=== PATIENT | female | born 1970 | race Caucasian/White ===

== ENCOUNTER 2020-08-19 17:48 | Emergency (ER) | payer OTHER, SELFPAY ==
[2020-08-19 18:19] VITALS: BP 165/95; PULSE 90; RESP 18; TEMP 36.7; O2SAT 96; BMI 38.5
--- NOTE | 2020-08-19 19:21 | CT_ITS ---
EXAMINATION: CT HEAD WITHOUT CONTRAST CLINICAL INFORMATION: Auditory hallucinations COMPARISON: None. TECHNIQUE: Contiguous axial imaging was performed from the skull base to vertex without intravenous administration of contrast. Coronal and sagittal reformatted images are performed at the CT scanner. [This CT examination was performed using dose optimization techniques as appropriate, variously including the following: *Automated exposure control *Adjustment of mA and/or kV according to patient size (this includes techniques or standardized protocols for targeted exams where dose is matched to indication/reason for exam; i.e. extremities or head) *Use of iterative reconstruction technique] DLP: 704 mGy-cm. FINDINGS: There is no evidence of acute intracranial hemorrhage or territorial infarction. No abnormal mass-effect or midline shift is seen. Wynn to white matter differentiation is well preserved. No extra-axial fluid collections are identified. The ventricles are normal in size. There is no abnormal attenuation within the brain parenchyma. There is no osseous abnormality. The mastoid air cells and visualized portions of the paranasal sinuses are well-aerated. CT/CT head/brain wo con IMPRESSION: No acute intracranial pathology.
--- NOTE | 2020-08-19 19:22 | ECG_ITS ---
Test Reason : CHEST PAIN Blood Pressure : / mmHG Vent. Rate : 086 BPM Atrial Rate : 086 BPM P-R Int : 142 ms QRS Dur : 076 ms QT Int : 412 ms P-R-T Axes : 028 -26 -68 degrees QTc Int : 493 ms Normal sinus rhythm Minimal voltage criteria for LVH, may be normal variant ST & T wave abnormality, consider inferior ischemia ST & T wave abnormality, consider anterolateral ischemia Abnormal ECG No previous ECGs available Referred By: Dahlia Calles Electronically Signed By:LUIGI HERZOG MD
--- NOTE | 2020-08-19 19:24 | ED_ITS ---
HPI - Psych General Chief Complaint: Psychiatric Symptoms Stated Complaint: insect under skin Time Seen by Provider: 08/19/20 18:51 Source: patient Mode of arrival: ambulatory Limitations: no limitations History of Present Illness HPI Narrative: 50-year-old female with a past medical history of depression, anxiety, PTSD, RLS, fibromyalgia, sleep apnea, PE on Xarelto, hypertension, tachycardia here with complaints of visual hallucinations. The patient tells me for the last few days she has been seeing mosquitos up in her ceiling that come down in squiggly lines and try to buy her. She tells me that she has been spraying her house with alcohol and insecticide. She told me she called her landlord several times and had removed the ceiling tiles and vacuuming the area. She tells me today she noticed them again and kept cleaning them. She then went to take a shower and noticed some crawling on the shower lugo. She feels like they were trying to bite her. She was praying with alcohol and a returning white. She was spraying with insecticide and may returning black. She tells me she went running out into the hallway to get help. She then spoke to her [facility] counselor who recommended be seen by crisis. The patient tells me she had her son drive her here. When she was sitting in the waiting room she said she could see bugs crawling up and down the wall. She does not hear voices. She denies suicidal, homicidal ideations. No physical complaints outside of bug bites that she feels on her arms and crawling down her throat and in her mouth. Patient tells me that she does not usually have hallucinations. No recent illness. No fevers, chills, headache, neck pain Denies substance or alcohol use. MD complaint: hallucinations Onset (ago): day(s) Duration: intermittent History of same: No Relieving factors: none Exacerbating factors: none Associated psychiatric symptoms: visual hallucinations Associated symptoms: denies other symptoms Treatments prior to arrival: none Related Data Allergies Allergy/AdvReac Type Severity Reaction Status Date / Time isosorbide [From ISORDIL] Allergy Unknown UNKNOWN Verified 08/19/20 18:26 Review of Systems Review of Systems: Yes all other systems are reviewed and are negative Constitutional: Constitutional: Reports no additional constitutional complaints, Denies body ache(s), Denies chills, Denies fever(s), Denies headache(s) and Denies weakness Eyes: Eyes: Reports no additional eye complaints and Denies change in vision ENT: Reports system reviewed and no additional complaints, except as documented, Denies dizziness, Denies headache(s), Denies nasal congestion, Denies nasal discharge and Denies neck pain Cardiovascular: Cardiovascular: Reports no additional cardiovascular complaints, Denies chest pain, Denies leg edema and Denies dyspnea Respiratory: Respiratory: Reports no additional respiratory complaints, Denies cough and Denies dyspnea Gastrointestinal: Gastrointestinal: Reports no additional gastrointestinal complaints, Denies abdominal pain, Denies diarrhea, Denies nausea and Denies vomiting Genitourinary: Genitourinary: Reports no additional female genitourinary complaints and Denies urinary incontinence Musculoskeletal: Musculoskeletal: Reports no additional musculoskeletal complaints, Denies back pain, Denies arthralgias, Denies joint swelling, Denies neck pain, Denies numbness and Denies tingling Integumentary/Breasts: Skin/Breast: Reports system reviewed and no additional complaints, except as docu and Denies rash Neurologic: Reports system reviewed and no additional complaints, except as documented, Denies Abnormal speech present, Denies dizziness, Denies headache(s), Denies numbness, Denies tingling and Denies weakness Psychiatric: Psychiatric: Denies anxiety, Denies depression, Reports visual hallucinations, Denies hallucinations, Reports tactile hallucinations, Denies h omicidal ideation and Denies suicidal ideation [facility] Past Medical History Attestation statement: The following information was validated with the patient. Source: old records reviewed and nursing notes reviewed Medical History Acute depression Anxiety HTN (hypertension) PTSD (post-traumatic stress disorder) Pulmonary emboli RLS (restless legs syndrome) Sleep apnea Tachycardia Social History Social History Alcohol intake: current Alcohol intake frequency: a few times a week Alcohol type: hard liquor Smoking Status: Never smoker Smoked in Last 30 Days: No Use of substances other than those prescribed or required for medical reasons: No Advance Directives: No Physical Exam Vital Signs: Vital Signs: Last Vital Signs Temp 98.0 F 08/19/20 18: Pulse 90 08/19/20 18:19 Resp 18 08/19/20 18:19 BP 165/95 H 08/19/20 18:19 Pulse Ox 96 08/19/20 18:19 Body Mass Index 38.5 Const: General: cooperative, healthy appearing, comfortable and no acute distress Orientation/consciousness: patient oriented x3 Limitations: no limitations HENMT: Head: Yes normal to inspection Ears: hearing grossly normal bilaterally General nose exam: Normal external nose present Face and sinus: Yes normal facial exam Mouth: Normal oral and palatal mucosa present Throat: Yes posterior oropharynx normal Eyes: General: appearance normal, both eyes and all related structures Pupils: Equal, round and reactive pupils present Neck: Neck: Yes normal visual inspection Chest: Chest palpation & inspection: normal inspection of the chest Resp: Effort & Inspection: normal respiratory effort Auscultation: clear to auscultation bilaterally Cardio: Rate: regular rate Rhythm: regular rhythm Peripheral pulses: Peripheral pulses 2+ throughout GI: Inspection: Yes normal to inspection Palpation (GI): Soft to palpation and nontender Auscultation: normal bowel sounds Back/Spine/Pelvis: Thoracic/Lumbar Spine: thoracic and lumbar spine normal to inspection Skin: General skin exam: no rashes or lesions noted Neuro: Other: Very anxious, during conversation keeps looking around the room, scratching at her arms General: patient oriented x3, no focal motor deficits and normal sensation to monofilament Cranial nerves: Yes Equal, round and reactive pupils present Cognition (Neuro): normal cognition Speech: No Abnormal speech present Gait exam (Neuro): Normal gait present Motor exam (neuro): 5/5 motor strength present throughout Sensory Exam: Normal double simultaneous stimulation for sensation Extrem: General: Yes normal to inspection Course Course Course Narrative: 50-year-old female here with both visual and tactile hallu cinations for the last few days. No history of visual or tactile hallucinations. She does have a history of auditory hallucinations. She tells me sometimes when she is around a lot of people she hears voices over them. She has no complaints of SI, HI. No physical complaints with the exception of some bug bites. Afebrile. No recent illnesses. I did speak to the patient's [facility] counselor. There was concern that maybe she stopped 1 of her medications recently and this may be secondary to that. However, the counselor is not sure the name of the medicine. I attempted to get in contact with both the patient's son and daughter but were unsuccessful. She is neurologically intact. She does tell me that she is seeing mosquitos in the room she is scratching at her arms. Will check labs, UA, MAYNARD, EKG, CT head. If medically cleared BHN evaluation. 2100-EKG shows some T-wave inversions. The patient has no chest pain. No previous EKGs to compare to. Troponon negative. Patient has a low magnesium level. Will order replacement. She has a leukocytosis of 15,000. Unclear source. Add on blood cultures and lactic acid. Urine and chest x-ray are pending. 2100-Sign out to Dr Padilla pending above. MDM - Psych Restraints Face to Face Assessment: Face to Face Assessment: Current Situation: After assessment of the patient, a review of the pertinent medical record and a discussion with nursing staff, I feel the patient requires a restrain intervent ion. Reaction To: [] Medical Condition: [] Behavioral State: [] Continued Need: [] Medical Records Attestation: I reviewed the patient's medical records. Lab Data Attestation: I reviewed the patient's lab results. Result diagrams: 08/19/20 19:55 08/19/20 19:55 Labs: Lab Results 08/19/20 08/19/20 08/19/20 Range/Units 19:55 19:55 19:55 WBC 15.8 H (4.8-10.8) X10*3/uL RBC 4.20 (4.20-5.50) X10*6/uL Hgb 16.4 H (12.0-16.0) g/dl Hct 47.6 H (37-47) % MCV 113.3 H (80-98) fL MCH 39.0 H (27.0-33.0) pg MCHC 34.5 (31.0-35.0) g/dl RDW 13.2 (11.0-16.0) % Plt Count 226 (160-400) X10*3/uL MPV 11.6 (9.4-12.3) fL Immature Gran % (Auto) 0.3 (0.0-0.4) % Neut % (Auto) 79.3 H (45-73) % Lymph % (Auto) 12.5 L (20-40) % [place] % (Auto) 6.8 (2-11) % Eos % (Auto) 0.6 (0-4) % Baso % (Auto) 0.5 (0-2) % Lymph # (Auto) 2.0 (1.2-4.9) X10*3/uL [place] # (Auto) 1.1 (0.1-1.2) X10*3/uL Eos # (Auto) 0.1 (0.0-0.4) X10*3/uL Baso # (Auto) 0.1 (0.0-0.2) X10*3/uL Abs Immat Gran (auto) 0.04 H (0.00-0.03) X10*3/uL Absolute Neuts (auto) 12.5 H (2.0-8.3) X10*3/uL Absolute Nucleated RBC 0.000 (0.0-0.012) X10*3/uL Nucleated RBC % (auto) 0.0 (0.0-0.2) /100WBC Sodium 137 (135-145) mmol/L Potassium 3.6 (3.3-5.1) mmol/l Chloride 97 (96-108) mmol/L Carbon Dioxide 27 (22-29) mmol/L Anion Gap 17 (12-20) BUN 9 (9-16) mg/dL Creatinine 0.87 (0.5-1.4) mg/dL Estim Creat Clear Calc 95.3 Estimated GFR > 60 Random Glucose 112 (60-115) mg/dL Calcium 9.4 (8.4-10.2) mg/dL Magnesium 1.3 L* (1.6-2.6) mg/dL Total Bilirubin 1.6 H (0.0-1.0) mg/dL Direct Bilirubin 0.7 H (0.0-0.5) mg/dL AST 20 (5-31) U/L ALT 29 (0-31) U/L Alkaline Phosphatase 72 (39-117) U/L Troponin I High Sens (<3.5-17.0) ng/L Total Protein 7.6 (6.5-8.0) g/dL Albumin 4.4 (3.5-5.0) g/dL Salicylates < 5.0 L (15-30) mg/dL Acetaminophen < 1 (<30) mcg/mL Ethyl Alcohol < 10 mg/dL 08/19/20 Range/Units 19:55 WBC (4.8-10.8) X10*3/uL RBC (4.20-5.50) X10*6/uL Hgb (12.0-16.0) g/dl Hct (37-47) % MCV (80-98) fL MCH (27.0-33.0) pg MCHC (31.0-35.0) g/dl RDW (11.0-16.0) % Plt Count (160-400) X10*3/uL MPV (9.4-12.3) fL Immature Gran % (Auto) (0.0-0.4) % Neut % (Auto) (45-73) % Lymph % (Auto) (20-40) % [place] % (Auto) (2-11) % Eos % (Auto) (0-4) % Baso % (Auto) (0-2) % Lymph # (Auto) (1.2-4.9) X10*3/uL [place] # (Auto) (0.1-1.2) X10*3/uL Eos # (Auto) (0.0-0.4) X10*3/uL Baso # (Auto) (0.0-0.2) X10*3/uL Abs Immat Gran (auto) (0.00-0.03) X10*3/uL Absolute Neuts (auto) (2.0-8.3) X10*3/uL Absolute Nucleated RBC (0.0-0.012) X10*3/uL Nucleated RBC % (auto) (0.0-0.2) /100WBC Sodium (135-145) mmol/L Potassium (3.3-5.1) mmol/l Chloride (96-108) mmol/L Carbon Dioxide (22-29) mmol/L Anion Gap (12-20) BUN (9-16) mg/dL Creatinine (0.5-1.4) mg/dL Estim Creat Clear Calc Estimated GFR Random Glucose (60-115) mg/dL Calcium (8.4-10.2) mg/dL Magnesium (1.6-2.6) mg/dL Total Bilirubin (0.0-1.0) mg/dL Direct Bilirubin (0.0-0.5) mg/dL AST (5-31) U/L ALT (0-31) U/L Alkaline Phosphatase (39-117) U/L Troponin I High Sens < 3.5 (<3.5-17.0) ng/L Total Protein (6.5-8.0) g/dL Albumin (3.5-5.0) g/dL Salicylates (15-30) mg/dL Acetaminophen (<30) mcg/mL Ethyl Alcohol mg/dL Imaging Data CT scan - head: Attestation: I personally reviewed and interpreted this imaging study as follows: Radiologist's impression: [place] [id number] CT Scan Report Signed Patient: Helen DiopMR#: [id number] : 1970Acct:[id number] Age/Sex: 50 / FADM Date: 08/19/20 Loc: HO.ED Attending Dr: Ordering Physician: DAVID KOEHLER NP Date of Service: 08/19/20 Procedure(s): CT head/brain wo con Accession Number(s): [id number] cc: DAVID KOEHLER NP~ EXAMINATION: CT HEAD WITHOUT CONTRAST CLINICAL INFORMATION: Auditory hallucinations COMPARISON: None. TECHNIQUE: Contiguous axial imaging was performed from the skull base to vertex without intravenous administration of contrast. Coronal and sagittal reformatted images are performed at the CT scanner. [This CT examination was performed using dose optimization techniques as appropriate, variously including the following: *Automated exposure control *Adjustment of mA and/or kV according to patient size (this includes techniques or standardized protocols for targeted exams where dose is matched to indication/reason for exam; i.e. extremities or head) *Use of iterative reconstruction technique] DLP: 704 mGy-cm. FINDINGS: There is no evidence of acute intracranial hemorrhage or territorial infarction. No abnormal mass-effect or midline shift is seen. Wynn to white matter differentiation is well preserved. No extra-axial fluid collections are identified. The ventricles are normal in size. There is no abnormal attenuation within the brain parenchyma. There is no osseous abnormality. The mastoid air cells and visualized portions of the paranasal sinuses are well-aerated. CT/CT head/brain wo con IMPRESSION: No acute intracranial pathology. ECG Data Attestation: I personally reviewed and interpreted this ECG as follows: ECG interpretation date: 08/19/20 ECG interpretation time: 20:06 Interpretation: Normal sinus rhythm, rate 86, normal ME, normal QRS, QTC 493. Inverted T-waves in V3, V4, V5 Discharge Plan Discharge Clinical Impression: Hallucination, visual
[2020-08-19 20:07] LABS: MANUAL DIFF FLAG NO
[2020-08-19 20:09] LABS: Basophils Absolute Auto 0.1 X10*3/uL (0.0-0.2); Basophils Percent Auto 0.5 % (0-2); Eosinophils Absolute Auto 0.1 X10*3/uL (0.0-0.4); Eosinophils Percent Auto 0.6 % (0-4); Hematocrit 47.6 % (37-47); Hemoglobin 16.4 g/dl (12.0-16.0); Imm Gran Abs Auto 0.04 X10*3/uL (0.00-0.03); Imm Gran Pct Auto 0.3 % (0.0-0.4); Lymphocytes Percent Auto 12.5 % (20-40); Mean Corpuscular HGB Conc 34.5 g/dl (31.0-35.0); Mean Platelet Volume 11.6 fL (9.4-12.3); Monocytes Absolute Auto 1.1 X10*3/uL (0.1-1.2); Monocytes Percent Auto 6.8 % (2-11); Neutrophils Absolute Auto 12.5 X10*3/uL (2.0-8.3); Neutrophils Percent Auto 79.3 % (45-73); Platelet Count 226 X10*3/uL (160-400); Red Cell Distribution Width 13.2 % (11.0-16.0); White Blood Count 15.8 X10*3/uL (4.8-10.8)
[2020-08-19 20:29] LABS: Ethanol < 10 mg/dL
[2020-08-19 20:45] LABS: Mean Corpuscular Volume 113.3 fL (80-98)
[2020-08-19 20:47] LABS: Acetaminophen LAB < 1 mcg/mL (<30); Alanine Aminotransferase 29 U/L (0-31); Albumin Level 4.4 g/dL (3.5-5.0); Alkaline Phosphatase 72 U/L (39-117); Anion Gap 17 (12-20); Aspartate Amino Transferase 20 U/L (5-31); Bilirubin Direct 0.7 mg/dL (0.0-0.5); Bilirubin Total 1.6 mg/dL (0.0-1.0); Blood Urea Nitrogen 9 mg/dL (9-16); Calcium 9.4 mg/dL (8.4-10.2); Carbon Dioxide 27 mmol/L (22-29); Chloride 97 mmol/L (96-108); Creatinine Clr Calc Pharmacy 95.3; Estimated Glomerular Filt Rate > 60; Glucose Random 112 mg/dL (60-115); Magnesium 1.3 mg/dL (1.6-2.6); Potassium 3.6 mmol/l (3.3-5.1); Salicylate < 5.0 mg/dL (15-30); Sodium 137 mmol/L (135-145); Total Protein 7.6 g/dL (6.5-8.0)
--- NOTE | 2020-08-19 20:56 | XR_ITS ---
EXAMINATION: XR CHEST CLINICAL INFORMATION: Pneumonia. COMPARISON: None TECHNIQUE: Frontal view of the chest was obtained. 9:04 PM FINDINGS: There are irregular small opacities in the left mid lung. There is a similar parenchymal opacity over the left mid lower lung retrocardiac area. These could be parenchymal, acute infiltrate versus old change including pleural calcification or parenchymal scarring of lung. There is no old films available for comparison. CT of chest would be helpful for further evaluation. Heart size is normal. No pulmonary vascular congestion. No pleural effusion, there is no pneumothorax. XR/XR chest 1V IMPRESSION: There are small opacities in the left midlung and left lung base which may be acute or chronic. CT of chest would be helpful for further evaluation.
[2020-08-19 20:58] LABS: Troponin-I High Sensitivity < 3.5 ng/L (<3.5-17.0)
[2020-08-19] MEDS: 0.9 % Sodium Chloride 1,000 ML 999 ML IV (21:30)
[2020-08-19 21:34] VITALS: BP 153/84; PULSE 73; RESP 20; O2SAT 96
[2020-08-19] MEDS: LORazepam 2 MG/ML VIAL 1 MG IVPUSH (21:38)
[2020-08-19] MEDS: Magnesium Sulfate/D5W 1 GM/100 ML PIGGYBACK IV (21:39)
[2020-08-19 22:10] LABS: Lactic Acid 1.4 mmol/L (0.5-2.0)
--- NOTE | 2020-08-19 23:04 | PC.NURSE ---
PER DR GARZA OK TO DC LINE. AND SEND TO BACK TO POD.
--- NOTE | 2020-08-19 23:33 | PC.NURSE ---
JEFF faxed and called.
--- NOTE | 2020-08-20 01:43 | PC.NURSE ---
PT is in apparent distress. Screaming and swatting at the mosquitos flying around the room and on the bed . Experiencing auditory, visual, and tactile hallucinations. Provider notified.
[2020-08-20] MEDS: LORazepam 1 MG TABLET 2 MG PO (01:50)
[2020-08-20 06:00] VITALS: BP 132/72; PULSE 84; RESP 18; TEMP 36.3; O2SAT 96
--- NOTE | 2020-08-20 07:14 | PC.NURSE ---
Report received from AMMON Castellon. Pt resting, resp unlabored.
[2020-08-20 08:02] VITALS: BP 142/74; PULSE 79; TEMP 36.3; O2SAT 97
[2020-08-20 09:50] LABS: COVID-19 Test Negative (Negative)
--- NOTE | 2020-08-20 11:21 | PC.NURSE ---
Pt awake briefly, affect even, aware of radiology results and need for treatments. No concerns reported at this time.
[2020-08-20] MEDS: Amoxicillin 500 MG CAPSULE 1000 MG PO ×3 (11:27→21:13)
[2020-08-20] MEDS: Azithromycin 500 MG TABLET PO (11:27)
--- NOTE | 2020-08-20 11:53 | PC.NURSE ---
bhn in w/ pt
[2020-08-20 12:00] VITALS: RESP 20
[2020-08-20] MEDS: LORazepam 1 MG TABLET PO ×2 (13:34→13:35)
--- NOTE | 2020-08-20 13:37 | PC.NURSE ---
pt laying in bed w nad, reports feeling anxious, medicated as ordered, psychiatric np mike states that the pt will get an mri
--- NOTE | 2020-08-20 14:56 | CT_ITS ---
EXAMINATION: CT HEAD WITH CONTRAST CLINICAL INFORMATION: Hallucinations. Leukocytosis. Concern for encephalitis. COMPARISON: CT head without contrast from 08/19/2020. TECHNIQUE: Contiguous axial imaging was performed from the skull base to vertex without and following the administration of 85 mL of Omnipaque 350 intravenous contrast. DLP: 725 mGy-cm FINDINGS: There is no evidence of acute intracranial hemorrhage or edematous territorial infarction. Nonspecific few foci of hypoattenuation in the periventricular and deep white matter. Wynn-white matter differentiation is preserved. The ventricles are normal in size and configuration. No evidence for obstructive hydrocephalus. No abnormal mass effect or midline shift. No extra-axial fluid collections. No demonstrated abnormal intracranial enhancement or regions of oligemia. No acute soft tissue or osseous abnormalities. Mild mucosal thickening of the paranasal sinuses. The mastoid air cells and middle ear cavities remain well aerated. CT/CT head/brain w con IMPRESSION: 1. No evidence of acute intracranial hemorrhage or edematous territorial infarction. 2. No abnormal intracranial enhancement. 3. Nonspecific mild white matter changes, most commonly seen with mild underlying microangiopathy.
--- NOTE | 2020-08-20 15:39 | PC.NURSE ---
Pt transferred to main ED for further medical workup. Pt gait steady, affect even. Report given to AMMON Benavides
[2020-08-20] MEDS: iohexoL 350 MG/ML 100 ML INFUS..BTL 85 ML IV (16:07)
[2020-08-20 16:20] VITALS: BP 128/77; PULSE 82; RESP 16; O2SAT 97
--- NOTE | 2020-08-20 16:21 | PC.NURSE ---
Pt moved from POD, alert/oriented x3. Awaiting MRI. Medicated with abx as charted
[2020-08-20 17:23] VITALS: BP 108/72; PULSE 82; RESP 16; O2SAT 95
--- NOTE | 2020-08-20 18:23 | PC.NURSE ---
Spoke to CARE team in order to facilitate outpatient psychiatric appt upon discharge, CARE team will reach out to [facility] (pts office) to see if appt can be made, will call ED back
--- NOTE | 2020-08-20 18:30 | MHC.CARE ---
CARE Team is contacted by ED charge rn, in order to help with setting up a psychiatry appointment. CARE Team reaches out to Yue, therapist from [facility], who reports that pt has a psychiatry appointment on 09/02/2020 via telehealth. This info is passed along to charge rn.
--- NOTE | 2020-08-20 18:48 | PC.NURSE ---
Pt has appt with Psychiatrist 09/02/20, Maria E aware but request appt sooner. This RN spoke to daughter to inquire about arranging sooner appt. Daughter Inna, contact number unk (daughter hung up while on hold) Pt remains alert and oriented at this time. Verbal permission to speak to daughter/family regarding care
--- NOTE | 2020-08-20 19:00 | PC.NURSE ---
Assumed care of pt. Pt resting in stretcher. Pt alert, respirations easy, n/l. skin w/d. Pt awaiting further orders.
--- NOTE | 2020-08-20 21:00 | PC.NURSE ---
pt resting in stretcher and medicated as per emar.
--- NOTE | 2020-08-20 22:08 | PC.NURSE ---
assumed care of pt. pt resting in stretcher. Pt awake and wathcing tv without complaints. VS obtained. Awaiting further orders.
[2020-08-20 23:45] VITALS: BP 119/60; PULSE 16; RESP 117; TEMP 36.6; O2SAT 96
[2020-08-21 00:16] LABS: Glucose Urine UA NEG (NEG); Leukocyte Esterase Urine NEG (NEG); Nitrite Urine NEG (NEG); PH 6.5 (5.0-8.0); Specific Gravity - Urine <= 1.005 (1.005-1.025); Urine Blood NEG (NEG); Urine Ketones 5 MG/DL (NEG); Urine Protein NEG (NEG-TRACE)
[2020-08-21 00:18] LABS: Appearance Urine CLEAR; Color Urine AMBER; UACC Culture Trigger NO
[2020-08-21 01:57] VITALS: BP 113/66; PULSE 71; RESP 16; TEMP 36.4; O2SAT 96
--- NOTE | 2020-08-21 02:27 | MHC.CARE ---
billet straightenerPaige reaches out to CARE Team regarding pt's disposition. Provider, Maria E Iyer, LISA also participates in this discussion. Per Maria E, pt is not being discharged because her outpatient psychiatric appt at [facility] is too far away, September 02, 2020, and pt is in need of more immediate psychiatric care. CARE Team inquires about why [facility] was ruled out given this info. Maria E would like for CARE Team to call [facility] tomorrow and see if a sooner medication appointment can be accommodated. In the event that this cannot be accommodated, plan is agreed upon for N to be called and asked to conduct re-eval, to see if pt needs to be psychiatrically admitted, given that outpatient psychiatry is often difficult to access quickly. Per providerMaria E, psychotic sx may be attributed to benzodiazepine withdrawal. CARE Team will follow up in the morning and will communicate with provider and chargemaster analyst, per Paige's request.
--- NOTE | 2020-08-21 06:47 | PC.NURSE ---
Per Care team the plan is to reach out to [facility] to try and facilitate an earlier appt for pt to manage tapering off of benzos. If no sooner appt is available the plan is for N to do a re-eval and change dispo in which case M5 may become an option.
[2020-08-21 07:18] VITALS: BP 143/87; PULSE 83; RESP 16; TEMP 36.8; O2SAT 97
--- NOTE | 2020-08-21 07:21 | PC.NURSE ---
pt alert and oriented, skin appropriate for ethnicity. pt denies. pt requested to brush her teeth, pt give toothbrush and toothpaste. pt states that she used to take benzo's since 2011 clonazepam and tomazepam but then was taken off them by her pcp. pt reported that she could not sleep for about 5days and her behavior changed, that is why she came to the ed. pt explained that we are trying to figure out how she can get back on the benzo's. pt also reports taking xarelto for chronic pulmonary embolisms.
[2020-08-21] MEDS: Amoxicillin 500 MG CAPSULE 1000 MG PO (09:40)
[2020-08-21] MEDS: Azithromycin 500 MG TABLET 250 MG PO (09:42)
--- NOTE | 2020-08-21 09:54 | PC.NURSE ---
spoke to galilea from care team. galilea is working on getting the pt connected back with a provider, according to galilea when she spoke to [facility] counseling the pt' provider that was prescribing her the benzo's quite and the pt was not set up with a new provider. also we contacted Corazon Bauman to come down for a psy evaluation. plan for Corazon to come down and see the pt this rn also called [facility] to [facility] medication, and updated in the computer
--- NOTE | 2020-08-21 10:21 | MHC.CARE ---
CARE team asked to continue to follow up with this per CARE team pass along. Per CARE team communication pt was cleared by N and cleared by CARE team however there was a decision to hold pt until she could secure an sooner appointment with her medication prescriber which was reportedly 09/02/19 at [facility]. T/w called [facility] and spoke with two staff who then transferred t/w to [facility] regarding this special request. [facility] was strongly against providing t/w a sooner appt for pt due to not being an inpatient hospital discharge then added that pt is not assigned to a provider any longer due to pts provider resigned recently . T/w made the case that pt would need follow up or referral to another provider in lieu of her current provider's recent abrupt departure. After another call [facility] called t/dimitri and gave pt the soonest appt of Tuesday08/25/20 at 2 pm via telehealth using her family's phone as used last time by their report. Pt will also be seen by [employer]SP[employer]ATION MANAGER for added consultation and suggestions for bridging pt until this appt.T/w has been in numerous calls with [facility] and staff at [facility] for this plan and staff working with this pt are aware of this plan.
--- NOTE | 2020-08-21 10:26 | PC.NURSE ---
saqib christy at bedside speaking to pt at this time
[2020-08-21 11:11] VITALS: BP 134/81; PULSE 87; RESP 18; O2SAT 95
[2020-08-21] MEDS: LORazepam 1 MG TABLET PO (11:12)
[2020-08-21] MEDS: Magnesium Sulfate/H2O 2 GM/50 ML PIGGYBACK IV (11:31)
[2020-08-21 12:34] VITALS: BP 113/72; PULSE 82; RESP 24; TEMP 37; O2SAT 94
[2020-08-21 13:17] LABS: Magnesium 2.9 mg/dL (1.6-2.6)
--- NOTE | 2020-08-21 13:46 | P.CNPS_ITS ---
History of Present Illness Date of Service: 08/21/2020 Chief Complaint: insect under skin Reason for Consult: Patient is a 50 year old Green[place]ic speaking female who presented to ED reporting new onset tactile and visual hallucinations. She reported seeing bugs in her home, on the lugo in the ED and on her skin. She was quite distraught by this She reported no history of hallucinations. She was worked up while in ED and medically cleared, she was given a dose of Lorazepam and it was noted that all of her sx subsided. Once patient was clearer, a better history was obtained and it was determined that patient was recently tapered off of Clonazepam. Psych consult requested to assist with restarting benzodiazepines and bridge rx until appt with outpatient provider. Patient seen in room 22 of main ED. Awake, alert, oriented and engaged in interview. Patient reporting she was not aware that what she was experiencing was due to her medications being tapered. She reports that for several days she had been unable to sleep, had racing thoughts and increasing anxiety. She stated she tried to occupy herself by cleaning, but things were not getting better. She reports she has been in communication with her therapist who recommended she come to the ED as per her report psychiatric provider was not responding. Patient reports she has been prescribed Clonazepam since 2011. Over time the doses have been increased and her highest dose was 4mg. She reports having to transfer her care as previous psychiatric provider was no longer available. Patient reports that PCP then began to taper her Klonopin. [facility] reviewed and patient was being prescribed 4mg daily up until 06/25/2020 and then taper dosing starting. Patient is tearful during interview stating that she has never had anything like this happen before. She reported feeling terrified about the things she was seeing. She does not want to restart Klonopin. She had recieved doses of lorazepam while in ED that were effective. Requesting physician: Agustin Cervantes Discussed with referring provider: Yes Sources of Information: patient interviewed and chart reviewed HPI Past Psychiatric History: Denies has outpatient therapist at [facility] Medical Evaluation Reviewed: Yes Review of Systems Constitutional: Denies headache(s) and Denies weakness Denies dizziness and Denies headache(s) Musculoskeletal: Denies numbness and Denies tingling Reports system reviewed and no additional complaints, except as documented, Denies Abnormal speech present, Denies dizziness, Denies headache(s), Denies numbness, Denies tingling and Denies weakness Psychiatric: Reports anxiety ON LICENSE OF [facility] Medical History Acute depression Anxiety HTN (hypertension) PTSD (post-traumatic stress disorder) Pulmonary emboli RLS (restless legs syndrome) Sleep apnea Tachycardia Diagnostics Vital Signs (24Hr): Vital Signs - 24 hr 08/20/20 16:20 08/20/20 17:23 08/20/20 23:45 Temperature 97.9 F Pulse Rate 82 82 16 L Respiratory Rate 16 16 117 H Blood Pressure 128/77 108/72 119/60 Pulse Oximetry 97 95 96 08/21/20 01:57 08/21/20 07:18 08/21/20 11:11 Temperature 97.6 F 98.3 F Pulse Rate 71 83 87 Respiratory Rate 16 16 18 Blood Pressure 113/66 143/87 H 134/81 Pulse Oximetry 96 97 95 08/21/20 12:34 Temperature 98.6 F Pulse Rate 82 Respiratory Rate 24 H Blood Pressure 113/72 Pulse Oximetry 94 Body Mass Index 38.5 Labs Results: 08/19/20 19:55 08/19/20 19:55 Labs: Laboratory Results - last 48 hr 08/19/20 08/19/20 08/19/20 19:55 19:55 19:55 WBC 15.8 H RBC 4.20 Hgb 16.4 H Hct 47.6 H MCV 113.3 H MCH 39.0 H MCHC 34.5 RDW 13.2 Plt Count 226 MPV 11.6 Immature Gran % (Auto) 0.3 Neut % (Auto) 79.3 H Lymph % (Auto) 12.5 L [place] % (Auto) 6.8 Eos % (Auto) 0.6 Baso % (Auto) 0.5 Lymph # (Auto) 2.0 [place] # (Auto) 1.1 Eos # (Auto) 0.1 Baso # (Auto) 0.1 Abs Immat Gran (auto) 0.04 H Absolute Neuts (auto) 12.5 H Absolute Nucleated RBC 0.000 Nucleated RBC % (auto) 0.0 Smear Path Review SEE NOTE Sodium 137 Potassium 3.6 Chloride 97 Carbon Dioxide 27 Anion Gap 17 BUN 9 Creatinine 0.87 Estim Creat Clear Calc 95.3 Estimated GFR > 60 Random Glucose 112 Lactic Acid Calcium 9.4 Magnesium 1.3 L* Total Bilirubin 1.6 H Direct Bilirubin 0.7 H AST 20 ALT 29 Alkaline Phosphatase 72 Troponin I High Sens Total Protein 7.6 Albumin 4.4 Urine Color Urine Appearance Urine pH Ur Specific [place] Urine Protein Urine Glucose (UA) Urine Ketones Urine Blood Urine Nitrite Ur Leukocyte Esterase Salicylates < 5.0 L Acetaminophen < 1 Ethyl Alcohol < 10 COVID-19 ([facility] C) COVID-19 Clin Com 08/19/20 08/19/20 08/20/20 19:55 21:33 09:24 WBC RBC Hgb Hct MCV MCH MCHC RDW Plt Count MPV Immature Gran % (Auto) Neut % (Auto) Lymph % (Auto) [place] % (Auto) Eos % (Auto) Baso % (Auto) Lymph # (Auto) [place] # (Auto) Eos # (Auto) Baso # (Auto) Abs Immat Gran (auto) Absolute Neuts (auto) Absolute Nucleated RBC Nucleated RBC % (auto) Smear Path Review Sodium Potassium Chloride Carbon Dioxide Anion Gap BUN Creatinine Estim Creat Clear Calc Estimated GFR Random Glucose Lactic Acid 1.4 Calcium Magnesium Total Bilirubin Direct Bilirubin AST ALT Alkaline Phosphatase Troponin I High Sens < 3.5 Total Protein Albumin Urine Color Urine Appearance Urine pH Ur Specific [place] Urine Protein Urine Glucose (UA) Urine Ketones Urine Blood Urine Nitrite Ur Leukocyte Esterase Salicylates Acetaminophen Ethyl Alcohol COVID-19 ([facility]) Negative COVID-19 [facility] Com See Note 08/21/20 08/21/20 00:01 12:42 WBC RBC Hgb Hct MCV MCH MCHC RDW Plt Count MPV Immature Gran % (Auto) Neut % (Auto) Lymph % (Auto) [place] % (Auto) Eos % (Auto) Baso % (Auto) Lymph # (Auto) [place] # (Auto) Eos # (Auto) Baso # (Auto) Abs Immat Gran (auto) Absolute Neuts (auto) Absolute Nucleated RBC Nucleated RBC % (auto) Smear Path Review Sodium Potassium Chloride Carbon Dioxide Anion Gap BUN Creatinine Estim Creat Clear Calc Estimated GFR Random Glucose Lactic Acid Calcium Magnesium 2.9 H Total Bilirubin Direct Bilirubin AST ALT Alkaline Phosphatase Troponin I High Sens Total Protein Albumin Urine Color MIKAYLA Urine Appearance CLEAR Urine pH 6.5 Ur Specific [place] <= 1.005 Urine Protein NEG Urine Glucose (UA) NEG Urine Ketones 5 Urine Blood NEG Urine Nitrite NEG Ur Leukocyte Esterase NEG Salicylates Acetaminophen Ethyl Alcohol COVID-19 ([facility]UAN C) COVID-19 Clin Com Imaging Radiology Impressions: ITS Impressions Head CT 08/19/20 19:21 IMPRESSION: No acute intracranial pathology. Chest X-Ray 08/19/20 20:56 IMPRESSION: There are small opacities in the left midlung and left lung base which may be acute or chronic. CT of chest would be helpful for further evaluation. Head CT 08/20/20 14:56 IMPRESSION: 1. No evidence of acute intracranial hemorrhage or edematous territorial infarction. 2. No abnormal intracranial enhancement. 3. Nonspecific mild white matter changes, most commonly seen with mild underlying microangiopathy. Mental Status Exam Mental Status Exam Patient Appearance: Well Grooomed and Appropriate Patient Orientation: Person, Place, Time and Situation Level of Consciousness: Awake and Appropriate Patient Behavior: Appropriate Mood Description: Calm Affect Description: Calm Ability to Follow Directions: Excellent Speech Pattern: Clear Memory Description: Intact Hallucinations: None Delusions: Not Present Thought Process: Intact Thought Content: positive for Intact Depressive Symptoms: Increased Anxiety and Difficulty Sleeping Judgement: Good Medications Allergies Allergies Allergy/AdvReac Type Severity Reaction Status Date / Time isosorbide [From ISORDIL] Allergy Unknown UNKNOWN Verified 08/19/20 18:26 Assessment & Plan Assessment & Plan (1) Withdrawal from benzodiazepine: Status: Acute Code(s): F13.239 - Sedative, hypnotic or anxiolytic dependence with withdrawal, unspecified Recommendations: Based on available history and patient interview, it appears benzo taper may have been too rapid. Patient has been on Clonazepam for several years and likely would benefit from a much slower taper that may last several months. Unclear if patient was reporting any sx to prescribing provider as slowing down the taper/increasing her dose may have helped Patient afraid of Clonazepam now, so bridge rx provided for Lorazepam 1mg TID until appt with psychiatric provider schedule for Saturday 08/25 Greater than 50% of the session was spent on counseling and/or coordination of care
== END 2020-08-21 13:36 | disposition home or self-care (01) ==
PROVIDERS: Nurse Practitioner Family; Physician Assistant; Emergency Provider Emergency Medicine
DX: F33.1 Major depressive disorder, recurrent, moderate (principal); R44.1 Visual hallucinations; R44.0 Auditory hallucinations; F41.1 Generalized anxiety disorder; F43.0 Acute stress reaction; Z79.899 Other long term (current) drug therapy; Z79.01 Long term (current) use of anticoagulants
CPT/HCPCS: 36415; 70450; 70460; 71045; 80048; 80076; 80320; 81003; 83605; 83735; 84484; 85025; 85060; 87040; 87635; 93005; 99283; 99285; G0480; J2060; J3475; Q9967